=== PATIENT | male | born 2000 | race Caucasian/White ===

== ENCOUNTER 2019-07-31 18:13 | Emergency (ER) | payer SELFPAY ==
[~2019-07-31] VITALS: Ht 188 cm; Wt 68.0 kg
[2019-07-31 18:20] VITALS: BP 128/89
--- NOTE | 2019-07-31 18:28 | NUR ---
WAIT AT LOBBY
--- NOTE | 2019-07-31 19:00 | NUR ---
PT AMBULATED TO ER CHAIR D
--- NOTE | 2019-07-31 19:13 | NUR ---
PT AMBULATED TO ER BED 11
--- NOTE | 2019-07-31 19:23 | NUR ---
Pt report given to che narvaez. Transfer of care at this time.
[2019-07-31] MEDS ORDERED: LIDOCAINE MPF 1% 10 MG/ML VIAL INJ ONE (19:25)
[2019-07-31] MEDS ORDERED: IBUPROFEN 600 MG TAB PO ONE (19:25)
--- NOTE | 2019-07-31 19:30 | NUR ---
PT DENIES LOSS OF CONCIOUSNESS.
--- NOTE | 2019-07-31 19:30 | NUR ---
PT BIB SELF FOR C/O LAC ON R EYEBROW S/P FALL. PT ADMITS TO HITTING HEAD. PT AAO X4. SPEECH IS CLEAR. PERRL. DENIES DIZZYNESS OR PAIN. PT AMBULATORY AND HAS EQUAL STRENGTH IN UE AND LE. PT RESPIRATIONS ARE EVEN AND UNLABORED. SKIN IS WARM AND DRY TO TOUCH. PT DENIES COUGH. DENIES N/V/D. PT DENIES PAIN 0/10. PT RESTING IN BED EYES OPEN AND STARING AT PHONE. MED HISTORY: NONE ALLERGIES: NKA
--- NOTE | 2019-07-31 19:40 | NUR ---
MOTRIN 600 GIVEN PO. SUTURE SET UP AT BEDSIDE.
--- NOTE | 2019-07-31 20:22 | NUR ---
PT RESTING IN BED EYES OPEN. PT AAO X4. RESPIRATIONS ARE EVEN AND UNLABORED. PT DENIES PAIN AT THIS TIME. PT DENIES AGUILAR OR DIZZINESS. PT LOOKING AT PHONE SITTING UPRIGHT. VSS. BED LOCKED AND IN LOWEST POSTION.
--- NOTE | 2019-07-31 21:12 | NUR ---
GREG HUANG AT BEDSIDE.
[2019-07-31 21:55] VITALS: BP 122/78
--- NOTE | 2019-07-31 21:55 | NUR ---
Patient discharged with v/s stable. Written and verbal after care instructions given and explained. Patient alert, oriented and verbalized understanding of instructions. Ambulatory with steady gait. All questions addressed prior to discharge. ID band removed. Patient advised to follow up with PMD. Rx of IBUPROFEN, BACITRACIN given. Patient educated on indication of medication including possible reaction and side effects. Opportunity to ask questions provided and answered.
== END 2019-07-31 21:55 | disposition home or self-care (01) ==
LOC: MED 18:13
DX: S01.111A Laceration without foreign body of right eyelid and periocular area, initial encounter (principal); W18.09XA Striking against other object with subsequent fall, initial encounter; Y93.89 Activity, other specified; Y92.89 Other specified places as the place of occurrence of the external cause; Y99.8 Other external cause status
CPT/HCPCS: 12011; 99283; J2001